=== PATIENT | female | born 1955 | race Caucasian/White ===

== ENCOUNTER 2025-01-14 12:44 | Emergency (ER) | payer MEDICARE, SELFPAY ==
[2025-01-14 12:47] VITALS: BP 154/65; PULSE 93; RESP 16; TEMP 36.4; O2SAT 98; BMI 20.5
--- NOTE | 2025-01-14 12:47 | ED.EAR ---
HPI - Ear Problem General Chief complaint: Ear Problems Stated complaint: ear pain Time Seen by Provider: 01/14/25 12:55 Source: patient Mode of arrival: ambulatory Limitations: no limitations History of Present Illness ED Provider: ferny contreras np HPI Narrative: Patient is a 70-year-old female who presents emergency department for evaluation. She reports that yesterday evening she began experiencing pain to her left ear described as a throbbing sensation and had decreased hearing this morning. She additionally today noticed that she was having discomfort to her right ear but it is less than the left. She denies any active drainage from the ear. She denies rhinitis nasal congestion. Additionally today she awoke with hoarseness to her voice and a scratchy throat but denies it to be overtly sore. No swelling. She is able to tolerate eating and drinking without difficulty. Managing secretions. Denies fevers or chills. No chest pain or shortness of breath. No neck pain or neck stiffness Related Data Previous Rx's ?Medication ?Instructions ?Recorded cefpodoxime 200 mg tablet 200 mg PO BID 7 days #14 tabs 01/14/25 Allergies Allergy/AdvReac Type Severity Reaction Status Date / Time barium sulfate Allergy Vomiting Verified 01/14/25 12:57 clindamycin Allergy Gastrointestinal Verified 01/14/25 12:57 Upset diphenhydramine Allergy Rash Verified 01/14/25 12:57 epinephrine Allergy Facial Verified 01/14/25 12:51 Swelling Iodinated Contrast Media Allergy Vomiting Verified 01/14/25 12:57 latex Allergy Rash Verified 01/14/25 12:57 metronidazole Allergy Gastrointestinal Verified 01/14/25 12:57 Upset Penicillins (PCN) Allergy Gastrointestinal Verified 01/14/25 12:57 Upset pentazocine Allergy Vomiting Verified 01/14/25 12:57 silver nitrate Allergy Swelling Verified 01/14/25 12:57 sucralfate Allergy Vomiting Verified 01/14/25 12:57 Sulfa (Sulfonamide Allergy Rash Verified 01/14/25 12:57 Antibiotics) Review of Systems Review of Systems: Yes all other systems are reviewed and are negative PMFSH Past Medical History Attestation statement: The following information was validated with the patient. Source: old records reviewed Physical Exam Vital Signs: Vital Signs: Last Vital Signs Temp 97.5 F 01/14/25 12:47 Pulse 93 01/14/25 12:47 Resp 16 01/14/25 12:47 BP 154/65 H 01/14/25 12:47 Pulse Ox 98 01/14/25 12:47 O2 Del Method Room Air 01/14/25 12:47 BMI result Body Mass Index 20.5 Appearance: Alert.?Oriented to person, place and time. No acute distress.?Normal affect. Eyes: Pupils equal, round and reactive to light.? ENT: TM on the left is erythematous and bulging but remains intact. External canal is clear. No mastoid tenderness. Right TM is normal with clear external canal. No mastoid tenderness. Pharynx is mildly erythematous no hypertrophy or exudates. Uvula is midline. No trismus. No drooling. Neck: Normal inspection.? Neck supple.??No cervical adenopathy. Full range of motion. CVS: Heart sounds normal. Normal heart rate and rhythm.? Pulses normal.?? Respiratory: No respiratory distress.? Lung sounds clear to auscultation bilaterally?? Skin: Skin warm and dry.? Normal skin color.? ? Extremities: No lower extremity edema.? Neuro: Moves all extremities spontaneously. Sensation intact bilaterally. No motor deficits. Ambulates with normal steady gait. Course Course Course Narrative: Corbin Ventura APRN This is a rapid medical exam. Deferred additional HPI, ROS, PE to primary provider. 70 yo female here ear pain, sore/hoarse throat voice with waking. Will send viral testing, obtain strep testing VSS Medical Decision Making Medical Decision Making MDM Narrative: Patient is a 70-year-old female, presenting for evaluation of ear pain and sore throat as per HPI COVID-19 /influenza/RSV testing is negative. Group a strep testing is negative, examination does not appear consistent with [employer]. Although she has a mild hoarseness to her voice I suspect that this is secondary to a laryngitis/pharyngitis, full range of motion to the neck, she is tolerating secretions no respiratory distress do not suspect otherwise airway and pending mass. She has no hypoxia. On examination she does have findings concerning for acute otitis media on the left without evidence of mastoiditis, no evidence of otitis externa. She had some reservations about taking oral antibiotics given her allergy to many antibiotics primarily causing GI upset. Prescribed course of cefpodoxime advised to take with food to prevent stomach upset. Outpatient follow-up with your primary care provider. Given worrisome signs and symptoms that would warrant re-evaluation emergency department. All questions answered. Stable for discharge Differential Diagnosis Differential Diagnoses: The differential diagnosis associated with the presentation includes ( See narrative above) Admission/Observation Consideration of admission/observation: Escalation of care including admission/observation considered ( see narrative above) Lab Data MDM Lab Attestation statement: I reviewed the patient's lab results. ( see narrative above) Labs: Lab Results 01/14/25 Range/Units 12:55 Influenza Type A (PCR) NEGATIVE (Negative) Influenza Type B (PCR) NEGATIVE (Negative) RSV RNA Qual (PCR) NEGATIVE (Negative) SARS-CoV-2 RNA (RT-PCR) NEGATIVE (Negative) S. pyogenes GrpA NINOSKA Negative (Negative) Prescription Management I considered prescription management with: Pain Medication ( acetaminophen/ibuprofen) and Antibiotic Discharge Plan Discharge Clinical Impression: Otitis media Patient Disposition: Home, Self-Care Instructions: Ear Infection (ED) Prescriptions: New cefpodoxime 200 mg tablet 200 mg PO BID 7 Days Qty: 14 0RF Rx Instructions: must administer with a meal/food Referrals: Shila Musa NP [Primary Care Provider, Internal Medicine] Print Language: Croatian
[2025-01-14 13:09] LABS: IDNOW Serial# 55D5AD1C; Strep A Nucleic Acid Negative (Negative)
[2025-01-14 13:52] LABS: Influenza A PCR NEGATIVE (Negative); Influenza B PCR NEGATIVE (Negative); Resp Syncy Virus RNA Qual PCR NEGATIVE (Negative); SARS COV2 PCR INHOUSE NEGATIVE (Negative)
--- NOTE | 2025-01-14 14:05 | PC.NURSE ---
patient a&ox3, vss, swabs obtained, pt c/o 02/26 bilateral ear pain, awaitin results of testing, call estevez within reach, plan of care ongoing
[2025-01-14 14:15] VITALS: BP 167/62; PULSE 71; RESP 14; TEMP 36.9; O2SAT 100
[2025-01-14 14:31] VITALS: BP 167/62; PULSE 71; RESP 14; TEMP 36.9; O2SAT 100
== END 2025-01-14 14:32 | disposition home or self-care (01) ==
PROVIDERS: Nurse Practitioner Family; Emergency Provider Emergency Medicine; PCP Nurse Practitioner Adult Health
DX: H66.92 Otitis media, unspecified, left ear (principal); H92.02 Otalgia, left ear; Z03.818 Encounter for observation for suspected exposure to other biological agents ruled out
CPT/HCPCS: 0241U; 87651; 99283; 99284